=== PATIENT | female | born 1990 | race Caucasian/White ===

== ENCOUNTER 2017-03-22 00:38 | Inpatient (IN) | payer OTHER ==
[~2017-03-22] VITALS: Ht 165.1 cm; Wt 99.7 kg
[2017-03-22] VITALS (10 sets, daily range): BP systolic 96–143; BP diastolic 48–88; PULSE 64–114; RESP 16–18
[2017-03-22] MEDS ORDERED: LACTATED RINGER'S 1,000 ML IV SCH (01:13)
[2017-03-22] MEDS ORDERED: PRENAT PO (01:13)
[2017-03-22] MEDS ORDERED: BUTORPHANOL 2 MG INJ IV PRN (01:30)
[2017-03-22] MEDS ORDERED: MISOPROSTOL 200 MCG TAB PR PRN ×3 (01:30→17:00)
[2017-03-22] MEDS ORDERED: LIDOCAINE 1% (MPF) 30 ML INJ INJ PRN (01:30)
[2017-03-22] MEDS ORDERED: OXYTOCIN 30 UNITS/LR 500 ML IV PRN ×3 (01:30→17:00)
[2017-03-22] MEDS ORDERED: OXYTOCIN 30 UNITS/LR 500 ML IV SCH ×3 (01:30→16:43)
[2017-03-22] MEDS ORDERED: METHYLERGONOVINE 0.2 MG INJ IM PRN ×3 (01:30→17:00)
[2017-03-22] MEDS ORDERED: AMPICILLIN 2 GM/NS (PMX) 100 ML IV ONE (01:30)
[2017-03-22] MEDS ORDERED: CARBOPROST 250 MCG INJ IM PRN ×3 (01:30→17:00)
[2017-03-22] MEDS ORDERED: IBUPROFEN 600 MG TAB PO PRN (01:30)
--- NOTE | 2017-03-22 01:38 | TRIAGE ---
OB Triage Datetime Report Generated by CPN: 03/22/2017 01:37 Datetime: 03/22/2017 01:31 Time of Arrival: 03/22/2017 00:36 EGA: 40.3 Arrived By: Wheelchair Arrived From: Home Chief Complaint: ucs Movement: Present Contractions: Regular Time Contractions Began: 03/21/2017 22:00 Rupture of Membranes: Denies Vaginal Bleeding: Small Vaginal Discharge: Present Recent Sexual Intercouse: Denies Abdominal Trauma: Not Applicable Patient Complaints: Contractions Time Provider Notified: 03/22/2017 01:30 Provider Notified: Dr Jerez Initial Plan: SVE, EFM Datetime: 03/22/2017 01:16 Labor Evaluation Quality: Moderate Pattern: Normal: <= 5 Contractions in 10 Minutes Resting Tone Naselle: Relaxed Heart Rate FHR Baseline Rate: 130 Monitor Mode: External US FHR Baseline Changes: No Baseline Change Variability: Moderate 6-25 bpm Accelerations: 10X10 Decelerations: None Category: Category I Pain Assessment Pain Scale: 4 Pain Presence: Intermittent Pain Type: Contraction Pain Location: Abdomen Vaginal Exam Dilatation (cms): 4.0 Effacement (%): 90 Station: -2 Exam By: Devyn SINGH Membrane Status: Bulging Amniotic Fluid Amount: None Vaginal Bleeding: Scant Cervix, Consistency: Soft Cervix, Position: Posterior Presentation 'A': Cephalic
[2017-03-22 01:44] LABS: ADD UMIC YES; UR BILIRUBIN (Dip) NEGATIVE (NEGATIVE); UR BLOOD (Dip) 3+ (NEGATIVE); UR CLARITY SLIGHTLY CLOUDY (CLEAR); UR COLOR LT. YELLOW (YELLOW); UR GLUCOSE (Dip) NEGATIVE (NEGATIVE); UR KETONES (Dip) NEGATIVE (NEGATIVE); UR LEUKOCYTE ESTERASE (Dip) 2+ (NEGATIVE); UR NITRITE (Dip) NEGATIVE (NEGATIVE); UR TOTAL PROTEIN (Dip) NEGATIVE (NEGATIVE); UR UROBILINOGEN (Dip) 0.2 E.U./dL (0.1-1.0)
[2017-03-22] MEDS ORDERED: LACTATED RINGER'S 1,000 ML IV PRN (02:00)
[2017-03-22 02:10] LABS: UR BACTERIA OCCASIONAL /HPF (NONE SEEN); UR RBC 5 /HPF (0-5); UR SQUAMOUS EPITHELIAL CELL OCCASIONAL /HPF (FEW)
[2017-03-22 02:50] LABS: ADD SCAN DIFF NO
[2017-03-22 02:52] LABS: BASOPHILS % 0.1 % (0.0-2.0); EOSINOPHILS % 0.2 % (0.0-7.0); HEMATOCRIT 36.6 % (37.0-47.0); HEMOGLOBIN 12.2 g/dl (12.0-16.0); LYMPHOCYTES # 1.6 10^3/ul (0.8-2.9); LYMPHOCYTES % 12.2 % (15.0-51.0); MEAN CORPUSCULAR HEMOGLOBIN 30.6 pg (29.0-33.0); MEAN CORPUSCULAR HGB CONC 33.3 g/dl (32.0-37.0); MEAN CORPUSCULAR VOLUME 91.7 fl (82.0-101.0); MEAN PLATELET VOLUME 11.1 fl (7.4-10.4); MONOCYTE # 0.6 10^3/ul (0.3-0.9); MONOCYTES % 4.6 % (0.0-11.0); NEUTROPHILS % 82.6 % (39.0-77.0); PLATELET COUNT 172 10^3/UL (140-415); RED BLOOD COUNT 3.99 10^6/ul (4.20-5.40); RED CELL DISTRIBUTION WIDTH 13.4 % (11.5-14.5); WHITE BLOOD COUNT 13.3 10^3/ul (4.8-10.8)
--- NOTE | 2017-03-22 03:20 | RADRPT ---
PROCEDURE: US OB ESTIMATED WEIGHT. CLINICAL INDICATION: Pain. TECHNIQUE: Multiple sonographic images of the pelvis were obtained. The images were reviewed on a PACS workstation. COMPARISON: No pertinent prior examinations were submitted for comparison. FINDINGS: There is a single live intrauterine gestation. Cardiac activity is present with 144 beats per minut e. There is a vertex presentation. Measurements were made in order to determine age. The results are as follows: BPD =9.4 cm = 38 weeks 1 day HC =33 cm = 37 weeks 3 days AC =38 cm = 41 weeks 4 days FL =7.8 cm = 40 weeks 1 days Estimated gestational age of approximately 39 weeks 2 days. The estimated date of delivery is 03/27/2017. The EFW = 4044 g. 77.3% This examination was not performed for anatomy. The placenta is anterior, grade II in appearance. There is no evidence for an abruption or placenta previa. IMPRESSION: EFW = 4044 g. RPTAT: HIKT .Beto Padilla MD, MD Date Time Electronically viewed and signed by .Beto Padilla MD, on 03/22/2017 03:19 .T/
[2017-03-22 03:23] LABS: ALANINE AMINOTRANSFERASE 24 IU/L (13-69); ALBUMIN 4.4 g/dl (3.3-4.9); ALBUMIN/GLOBULIN RATIO 1.69; ALKALINE PHOSPHATASE 252 IU/L (42-121); ANION GAP 16 (8-16); ASPARTATE AMINO TRANSFERASE 16 IU/L (15-46); BILIRUBIN,INDIRECT 0.3 mg/dl (0-1.1); BILIRUBIN,TOTAL 0.3 mg/dl (0.2-1.3); BLOOD UREA NITROGEN 10 mg/dl (7-20); CALCIUM 9.2 mg/dl (8.4-10.2); CARBON DIOXIDE 19 mmol/L (21-31); CHLORIDE 106 mmol/L (97-110); CREATININE 0.74 mg/dl (0.44-1.00); GLUCOSE 89 mg/dl (70-220); POTASSIUM 4.1 mmol/L (3.5-5.1); SODIUM 137 mmol/L (135-144)
[2017-03-22 03:28] LABS: INR 0.93; PARTIAL THROMBOPLASTIN TIME 27.6 Sec (25.0-35.0); PROTIME 12.5 Sec (12.2-14.2)
[2017-03-22] MEDS ORDERED: MAGNESIUM SULFATE 4 GM/100 ML 100 ML ONE (04:39)
[2017-03-22] MEDS ORDERED: LABETALOL HCL 20MG INJ ONE (04:39)
[2017-03-22] MEDS ORDERED: MAGNESIUM SULFATE 4 GM/100 ML 100 ML IVPB ONE ×2 (04:40→05:00)
[2017-03-22] MEDS: LABETALOL HCL 20MG INJ IV PRN ×2 (04:48→05:46)
[2017-03-22] MEDS ORDERED: MAGNESIUM SULFATE 2 GM/50 ML 50 ML IVPB ONE (05:00)
[2017-03-22] MEDS ORDERED: MAGNESIUM SULFATE 20 GM/500 ML 500 ML IV SCH (05:30)
[2017-03-22] MEDS ORDERED: CEFAZOLIN 2 GM/50 ML (PMX) 50 ML IVPB SCH (08:00)
[2017-03-22] MEDS ORDERED: OXYTOCIN 10 UNIT INJ ONE (09:27)
[2017-03-22] MEDS ORDERED: EPHEDrine SULFATE 50 MG/5 ML SYG ONE (09:27)
[2017-03-22] MEDS ORDERED: morphine SULFATE/PF (10 MG/10 ML) INJ ONE (09:27)
[2017-03-22] MEDS ORDERED: METOCLOPRAMIDE 10 MG INJ ONE (09:27)
[2017-03-22] MEDS ORDERED: OXYTOCIN 30 UNITS/LR 500 ML IV ONE (09:27)
[2017-03-22] MEDS ORDERED: ONDANSETRON 4 MG INJ ONE (09:27)
[2017-03-22] MEDS ORDERED: KETOROLAC 30 MG INJ IV PRN (10:30)
[2017-03-22] MEDS ORDERED: DIPHENHYDRAMINE 50 MG INJ IV PRN (10:30)
[2017-03-22] MEDS ORDERED: NALOXONE (0.4 MG/ML) INJ IV PRN (10:30)
[2017-03-22] MEDS ORDERED: HYDROmorphONE 1 MG/ML SYG IV PRN ×2 (10:30)
[2017-03-22] MEDS ORDERED: EPHEDrine SULFATE 50 MG/5 ML SYG IV PRN (10:30)
[2017-03-22] MEDS ORDERED: morphine 2 MG INJ IV PRN ×2 (10:30)
[2017-03-22] MEDS ORDERED: morphine SULFATE/PF (10 MG/10 ML) INJ SPINAL ONE (10:30)
[2017-03-22] MEDS ORDERED: ONDANSETRON 4 MG INJ IV PRN (10:30)
[2017-03-22] MEDS: AMPICILLIN 1 GM/NS (PMX) 50 ML IV SCH (11:30)
[2017-03-22] MEDS ORDERED: OXYCODONE/ACETAMINOPHEN (5/325) TAB PO PRN ×2 (17:00)
[2017-03-22] MEDS ORDERED: ACETAMINOPHEN/CODEINE #3 TAB PO PRN ×2 (17:00)
[2017-03-22] MEDS ORDERED: LANOLIN 7 GM TUBE TOP PRN (17:00)
[2017-03-22] MEDS ORDERED: CEFAZOLIN 1 GM/50 ML (PMX) 50 ML IVPB SCH (17:00)
--- NOTE | 2017-03-22 17:20 | HP ---
Date/Time of Note Date/Time of Note DATE: 03/22/17 TIME: 16:27 OB - History Hx of Present Free Text/Dictation This is a 26 years old white female 40 weeks and 3 days admitted to [facility] [id number] on March 22, 2017 with chief complaint of labor, pelvic examination on admission cervix 4 cm dilated 90% effacement vertex at -2 -3 station with intact membrane, on admission her first blood pressure was 143/90 then later on sandra to 180s over high 90s complaining of headache epigastric pain but no blurry vision received IV labetalol ordered by the laborist on-call she underwent an ultrasound evaluation estimated weight over 4000 g, pelvic examination at 7:30 AM no change in cervical dilatation in spite of regular contractions, she also had 2 variable deceleration 3-4 minutes with recovery to the base line these findings which consist of high blood pressure suspected PIH, intolerance to labor estimated weight of over 4000 g discussed with the patient option to continue trial of labor or operative delivery by , after discussing the complication of the operative delivery patient consulted with the family declined further trial of labor and decided on delivery complication of including but not limited to bowel bladder injury wound infection hemorrhage and hematoma patient fully understood stated she would like to proceed with the operation Chief Complaint: Labor contractions Estimated Due Date: Mar 19, 2017 : 1 Para: 0 Spontaneous : 0 Therapeutic : 0 Care: Good Care Ultrasounds: Normal mid trimester US Obstetrical Complications: None Medical Complications: None Past Family/Social History * Past Medical, Surgical, Family and Obstetric Histories reviewed from chart. Rubella: immune RPR/VDRL: Negative GBS Status: Negative HBsAG: Negative OB Admission Exam Vital Signs Vital Signs Vital Signs Date Time Temp Pulse Resp B/P Pulse Ox O2 Delivery O2 Flow Rate FiO2 03/22/17 01:11 98.1 64 18 143/88 Room Air Physical Exam HEENT: WNL Heart: Rhythm Normal Lungs: Clear, Equal Abdomen: WNL Extremities: Normal Reflexes: Normal Cervical Dilatation: 4cm (90%) Membranes: Intact Heart Rate: 130's Accelerations: Accelerations Present Decelerations: Variable Decelerations Varibility: Moderate Contractions on Admission: 6-10 Minutes Apart Intensity: Moderate Last 72 hours Lab Results CBC & BMP 03/22/17 02:00 Liver Function Test 6/21/17 02:00 Alanine Aminotransferase (ALT/SGPT) 24 Albumin 4.4 Alkaline Phosphatase 252 H Aspartate Amino Transf (AST/SGOT) 16 Direct Bilirubin 0.00 Total Protein 7.0 Magnesium Level Test 03/22/17 12:15 Magnesium Level 4.4 H OB Assessment/Plan Reason for admission: other (Considering patient's elevated blood pressures to the level required IV labetalol, 2 variable deceleration lasting more than 3 minute, estimated weight of 4000+ since patient declined further trial of labor ,operative delivery by section was alternative option) Plan: Section Induction Method: other LISET PHAM MD Mar 22, 2017 16:50
[2017-03-22] MEDS: MAGNESIUM SULFATE 20 GM/500 ML 500 ML IV SCH (17:23)
[2017-03-22] MEDS: LACTATED RINGER'S 1,000 ML IV SCH (17:25)
--- NOTE | 2017-03-22 17:53 | OPR ---
DATE OF OPERATION: 03/22/2017 PREOPERATIVE DIAGNOSES: 1. Intrauterine at 40 weeks and 3 days. 2. complicated with -induced hypertension. 3. intolerance to contractions. 4. Estimated weight 4000 grams plus. 5. The patient declined further trial of labor. POSTOPERATIVE DIAGNOSES: 1. Intrauterine at 40 weeks and 3 days. 2. Estimated weight 4000 grams plus. 3. Suspected -induced hypertension, required IV labetalol. 4. Nonreassuring heart tracing, 2 separate decelerations of the heart to 60, lasting 3 minutes. 5. The patient declined further trial of labor. PROCEDURE PERFORMED: SURGEON: Liset Pinzon MD [employer] SUPERVISOR: Jessy Jerez MD ANESTHESIA: Spinal. ANESTHESIOLOGIST: Donnie Phan MD FINDINGS: Live baby boy, 8 and 9. Baby weighed at 4175 grams. DETAILS OF THE PROCEDURE: Under satisfactory spinal anesthesia, the patient was prepped and draped and placed in supine position, tilted to the left. Pfannenstiel incision was made, incision carried through the subcutaneous tissue. Bleeders brought under control with electrocautery. Fascia incis ed to the length of the incision. Rectus muscle divided in midline. Peritoneum exposed, entered th rough a transverse incision. Exploration of abdomen: Gravid uterus, normal-appearing tubes and ova dylon, evidence of labor. Bladder flap was developed. Transverse incision was made in the lower seg ment of the uterus. Amniotic sac ruptured. Scant amount but clear amniotic fluid noted. Live baby boy was delivered from wedged in vertex, occiput posterior. Nasal oropharyngeal suction was perfor med. Baby handed to the team for immediate attention. The patient received 20 units of Pi tocin. Placenta delivered manually intact. Uterine cavity cleaned with a sponge and drainage estab lished. Uterus closed in 2 layers using Monocryl #1 in continuous fashion. Peritoneal cavity irrig ated with warm saline. Sponge, needle and instrument reported to be correct. Abdominal peritoneum closed with 2-0 chromic catgut continuously. Rectus muscle approximated with a few interrupted 2-0 chromic catgut. Fascia closed with #1 PDS in a continuous fashion. Subcutaneo us tissue approximated with a few interrupted 2-0 chromic catgut. Skin closed with elisabeth. Estima maki blood loss 600 mL. Urine bag contained 200 mL of concentrated urine. The patient tolerated the procedure well, transferred to recovery room in a good condition. Dictated By: LISET OROZCO/DEVANTE Conf#: [id number] DID#: [id number]
[2017-03-23] VITALS (12 sets, daily range): BP systolic 96–116; BP diastolic 48–83; PULSE 88–110; RESP 16–20
[2017-03-23] MEDS: MAGNESIUM SULFATE 20 GM/500 ML 500 ML IV SCH (03:33)
[2017-03-23 07:54] LABS: ADD SCAN DIFF NO
[2017-03-23 08:03] LABS: BASOPHILS % 0.1 % (0.0-2.0); EOSINOPHILS % 0.1 % (0.0-7.0); HEMATOCRIT 26.7 % (37.0-47.0); HEMOGLOBIN 8.9 g/dl (12.0-16.0); LYMPHOCYTES # 1.4 10^3/ul (0.8-2.9); LYMPHOCYTES % 15.4 % (15.0-51.0); MEAN CORPUSCULAR HEMOGLOBIN 31.2 pg (29.0-33.0); MEAN CORPUSCULAR HGB CONC 33.3 g/dl (32.0-37.0); MEAN CORPUSCULAR VOLUME 93.7 fl (82.0-101.0); MEAN PLATELET VOLUME 10.7 fl (7.4-10.4); MONOCYTE # 0.3 10^3/ul (0.3-0.9); MONOCYTES % 3.2 % (0.0-11.0); NEUTROPHIL # 7.4 10^3/ul (1.6-7.5); NEUTROPHILS % 80.8 % (39.0-77.0); PLATELET COUNT 144 10^3/UL (140-415); RED BLOOD COUNT 2.85 10^6/ul (4.20-5.40); RED CELL DISTRIBUTION WIDTH 14.3 % (11.5-14.5); WHITE BLOOD COUNT 9.2 10^3/ul (4.8-10.8)
[2017-03-23] MEDS: LACTATED RINGER'S 1,000 ML IV SCH (08:35)
[2017-03-23] MEDS: IBUPROFEN 600 MG TAB PO SCH ×3 (12:06→23:48)
--- NOTE | 2017-03-23 13:02 | PN ---
Date/Time of Note Date/Time of Note DATE: 03/23/17 TIME: 13:01 OB Subjective Subjective Subjective Post primary day 1 Afebrile vital signs are listed abdomen is bowel sounds present incision lochia moderate extremities normal ambulation is encouraged Laboratory Tests Test 03/22/17 18:10 03/23/17 00:58 03/23/17 07:21 Magnesium Level 5.2mg/dl 5.7mg/dl 5.9mg/dl White Blood Count 9.210^3/ul Red Blood Count 2.8510^6/ul Hemoglobin 8.9g/dl Hematocrit 26.7% Mean Corpuscular Volume 93.7fl Mean Corpuscular Hemoglobin 31.2pg Mean Corpuscular Hemoglobin Concent 33.3g/dl Red Cell Distribution Width 14.3% Platelet Count 36832^3/UL Mean Platelet Volume 10.7fl Neutrophils % 80.8% Lymphocytes % 15.4% Monocytes % 3.2% Eosinophils % 0.1% Basophils % 0.1% Nucleated Red Blood Cells % 0.0/100WBC Neutrophils # 7.410^3/ul Lymphocytes # 1.410^3/ul Monocytes # 0.310^3/ul Eosinophils # 0.010^3/ul Basophils # 0.010^3/ul Nucleated Red Blood Cells # 0.010^3/ul Current Medications Medications (Trade) Dose Ordered Sig/Charlette Route PRN Reason Start Time Stop Time Status Last Admin Dose Admin Lactated Ringer's 1,000 ml @ 125 mls/hr Q8H IV 03/22/17 01:13 03/22/17 16:45 DC 03/22/17 02:05 Ampicillin 100 ml @ 100 mls/hr ONCE ONCE IV 03/22/17 01:30 03/22/17 02:29 DC Ampicillin (Ampicillin 1 Gm/ NS (Pmx)) 50 ml @ 100 mls/hr Q4H IV 03/22/17 05:30 03/22/17 16:45 DC Butorphanol Tartrate (Stadol) 2 mg Q2H PRN IV PAIN 03/22/17 01:30 03/22/17 16:46 DC Lidocaine 30 ml 30 ml ONCE PRN INJ EPISIOTOMY/TEARING 03/22/17 01:30 03/22/17 16:46 DC Oxytocin/Lactated Ringer's 500 ml @ 125 mls/hr ONCE -MAY REPEAT X1 IV 03/22/17 01:30 03/22/17 16:46 DC 03/22/17 11:29 Oxytocin/Lactated Ringer's 500 ml @ 125 mls/hr ONCE IV 03/22/17 01:30 03/22/17 16:46 DC Ibuprofen 600 mg 600 mg ONCE PRN PO Mild Pain (Pain Score 1-3) 03/22/17 01:30 03/22/17 16:46 DC Lactated Ringer's 1,000 ml @ 2,000 mls/hr Q30M PRN IV PRE-EPIDURAL BOLUS 03/22/17 02:00 03/22/17 16:46 DC Oxytocin/Lactated Ringer's 500 ml @ 0 mls/hr ONCE PRN IV For Hemorrhage Management 03/22/17 01:30 03/22/17 16:46 DC Methylergonovine Maleate (Methergine) 0.2 mg ONCE PRN IM VAGINAL BLEEDING 03/22/17 01:30 03/22/17 16:47 DC Carboprost Tromethamine (Hemabate) 250 mcg ONCE PRN IM VAGINAL BLEEDING 03/22/17 01:30 03/22/17 16:47 DC Misoprostol 1000 mcg 1,000 mcg ONCE PRN MO VAGINAL BLEEDING 03/22/17 01:30 03/22/17 16:47 DC Magnesium Sulfate 100 ml @ 200 mls/hr ONCE ONCE IVPB 03/22/17 04:40 03/22/17 04:43 DC Magnesium Sulfate (Magnesium Sulfate 2 Gm/50 ml) 50 ml @ 25 mls/hr ONCE ONCE IVPB 03/22/17 05:00 03/22/17 05:00 DC Labetalol HCl 20 mg 20 mg GIVE IF INDICATED PRN IV ELEVATED BLOOD PRESSURE 03/22/17 04:40 03/22/17 16:46 DC 03/22/17 05:46 Magnesium Sulfate (Magnesium Sulfate 4 Gm/100 ml) 100 ml @ ud STK-MED ONCE .ROUTE 03/22/17 04:39 03/22/17 04:40 DC Labetalol HCl 20 mg 20 mg STK-MED ONCE .ROUTE 03/22/17 04:39 03/22/17 04:40 DC Magnesium Sulfate 500 ml @ 50 mls/hr Q10H IV 03/22/17 05:30 03/22/17 16:46 DC 03/22/17 05:42 Magnesium Sulfate 100 ml @ 200 mls/hr ONCE ONCE IVPB 03/22/17 05:00 03/22/17 05:29 DC 03/22/17 04:57 Cefazolin Sodium/ Dextrose 50 ml @ 100 mls/hr ONCE IVPB 03/22/17 08:00 03/22/17 12:00 DC Oxytocin/Lactated Ringer's 500 ml @ 0 mls/hr ONCE PRN IV For Hemorrhage Management 03/22/17 08:00 03/22/17 16:46 DC Methylergonovine Maleate (Methergine) 0.2 mg ONCE PRN IM VAGINAL BLEEDING 03/22/17 08:00 03/22/17 16:46 DC Carboprost Tromethamine (Hemabate) 250 mcg ONCE PRN IM VAGINAL BLEEDING 03/22/17 08:00 03/22/17 16:46 DC Misoprostol (Cytotec) 1,000 mcg ONCE PRN MO VAGINAL BLEEDING 03/22/17 08:00 03/22/17 16:46 DC Ephedrine Sulfate 50 mg 50 mg STK-MED ONCE .ROUTE 03/22/17 09:27 03/22/17 09:28 DC Oxytocin/Lactated Ringer's 500 ml @ ud STK-MED ONCE IV 03/22/17 09:27 03/22/17 09:28 DC Morphine Sulfate (Duramorph) 10 mg STK-MED ONCE .ROUTE 03/22/17 09:27 03/22/17 09:28 DC Ondansetron HCl (Zofran Inj) 4 mg STK-MED ONCE .ROUTE 03/22/17 09:27 03/22/17 09:28 DC Metoclopramide HCl (Reglan) 10 mg STK-MED ONCE .ROUTE 03/22/17 09:27 03/22/17 09:28 DC Oxytocin (Oxytocin) 10 units STK-MED ONCE .ROUTE 03/22/17 09:27 03/22/17 09:28 DC Naloxone HCl (Narcan) 0.1 mg Q2M PRN IV FOR RESP RATE 8 OR LESS 03/22/17 10:30 03/23/17 10:29 DC Ketorolac Tromethamine (Toradol) 30 mg Q6H PRN IV PAIN 03/22/17 10:30 03/23/17 10:29 DC Morphine Sulfate (morphine) 2 mg Q3H PRN IV PAIN LEVEL 1-5 03/22/17 10:30 03/23/17 10:29 DC Morphine Sulfate (morphine) 4 mg Q3H PRN IV PAIN LEVEL 6-10 03/22/17 10:30 03/23/17 10:29 DC Hydromorphone HCl (Dilaudid) 0.2 mg Q3H PRN IV PAIN LEVEL 1-5 03/22/17 10:30 03/23/17 10:29 DC Hydromorphone HCl (Dilaudid) 0.4 mg Q3H PRN IV PAIN LEVEL 6-10 03/22/17 10:30 03/23/17 10:29 DC Diphenhydramine HCl (Benadryl) 25 mg Q6H PRN IV ITCHING 03/22/17 10:30 03/23/17 10:29 DC Ondansetron HCl (Zofran Inj) 4 mg Q6H PRN IV NAUSEA AND/OR VOMITING 03/22/17 10:30 03/23/17 10:29 DC Morphine Sulfate (Duramorph) 0.3 mg GIVEN ANESTH ONCE SPINAL 03/22/17 10:30 03/22/17 10:31 DC Ephedrine Sulfate 5 mg [id number] PRN IV BLOOD PRESSURE SUPPORT 03/22/17 10:30 03/22/17 16:46 DC Acetaminophen/ Codeine Phosphate (Tylenol No.3) 1 tab Q4H PRN PO PAIN LEVEL 4-6 03/22/17 17:00 Acetaminophen/ Codeine Phosphate (Tylenol No.3) 2 tab Q4H PRN PO PAIN LEVEL 7-10 03/22/17 17:00 Oxycodone/ Acetaminophen (Percocet (5/ 325)) 1 tab Q4H PRN PO PAIN LEVEL 4-6 03/22/17 17:00 Oxycodone/ Acetaminophen (Percocet (5/ 325)) 2 tab Q4H PRN PO PAIN LEVEL 7-10 03/22/17 17:00 Ibuprofen (Motrin) 600 mg Q6 PO 03/23/17 12:00 03/23/17 12:06 Simethicone (Mylicon) 160 mg Q8H PRN PO DISTENSION/GAS/BLOATING 03/22/17 17:00 Senna/Docusate Sodium (Senokot-S) 1 tab BID PO 03/23/17 21:00 Lanolin (Mbv-G-Nsxarm) 1 applic BEDSIDE MEDICATION PRN TOP BEDSIDE FOR AARON TO NIPPLES 03/22/17 17:00 03/22/17 17:24 Diphtheria/ Tetanus/Acell Pertussis 0.5 ml 0.5 ml ONCE ONCE IM* 03/25/17 09:00 03/25/17 09:01 Oxytocin/Lactated Ringer's 500 ml @ 0 mls/hr ONCE PRN IV For Hemorrhage Management 03/22/17 17:00 Methylergonovine Maleate (Methergine) 0.2 mg ONCE PRN IM VAGINAL BLEEDING 03/22/17 17:00 Carboprost Tromethamine (Hemabate) 250 mcg ONCE PRN IM VAGINAL BLEEDING 03/22/17 17:00 Misoprostol 1000 mcg 1,000 mcg ONCE PRN MO VAGINAL BLEEDING 03/22/17 17:00 Cefazolin Sodium 50 ml @ 100 mls/hr ONCE IVPB 03/22/17 17:00 03/22/17 17:29 DC 03/22/17 17:22 Oxytocin/Lactated Ringer's 500 ml @ 125 mls/hr Q4H IV 03/22/17 16:43 Lactated Ringer's 1,000 ml @ 75 mls/hr [id number] IV 03/22/17 17:00 03/23/17 08:35 Magnesium Sulfate (Magnesium Sulfate 20 Gm/500 ml) 500 ml @ 50 mls/hr Q10H IV 03/22/17 17:30 03/23/17 03:33 LISET PHAM MD Mar 23, 2017 13:02
[2017-03-23] MEDS: SENNA/DOCUSATE NA (8.6MG/50MG) TAB PO SCH (21:05)
[2017-03-24 04:00] VITALS: BP 116/71; PULSE 99; RESP 20
[2017-03-24] MEDS: IBUPROFEN 600 MG TAB PO SCH ×4 (05:36→23:38)
[2017-03-24 08:00] VITALS: BP 136/81; PULSE 82; RESP 18
[2017-03-24] MEDS: SENNA/DOCUSATE NA (8.6MG/50MG) TAB PO SCH ×2 (09:10→20:42)
--- NOTE | 2017-03-24 15:26 | PN ---
Date/Time of Note Date/Time of Note DATE: 03/24/17 TIME: 15:24 OB Subjective Subjective Subjective Post date Afebrile vital signs are stable, abdomen soft uterus firm incision dry bowel sounds present no bowel movement extremities normal enema recommended LISET PHAM MD Mar 24, 2017 15:26
[2017-03-24 16:00] VITALS: BP 131/73; PULSE 88; RESP 16
[2017-03-24 20:30] VITALS: BP 126/76; PULSE 94; RESP 18
[2017-03-25 04:00] VITALS: BP 112/69; PULSE 48; RESP 18
[2017-03-25] MEDS: IBUPROFEN 600 MG TAB PO SCH ×2 (05:44→12:31)
[2017-03-25 08:15] VITALS: BP 131/87; PULSE 82; RESP 18
[2017-03-25] MEDS ORDERED: DIPHTH/TET/ACEL PERTUSS (ADULT) 0.5 ML VIAL IM* ONE (09:00)
[2017-03-25] MEDS: SENNA/DOCUSATE NA (8.6MG/50MG) TAB PO SCH (09:01)
--- NOTE | 2017-03-25 11:29 | PD.PPDC ---
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
--- NOTE | 2017-03-25 11:32 | DS ---
Date/Time of Note Date/Time of Note DATE: 03/25/17 TIME: 11:29 Discharge Summary Admission/Discharge Info Admit Date/Time Mar 22, 2017 at 01:30 Discharge Date/Time March 25, 2017 at 11:30 AM Discharge Diagnosis Post primary date 3 Patient Condition: Good Procedures Primary due to nonreassuring heart tracing suspected PIH estimated weight of the baby over 4000 g patient declined further trial of labor Hx of Present Illness Term Hospital Course Satisfactory uneventful Home Meds Reported Medications Multivit/Min/Fol Ac/Iron/Pren* ( S*) 1 Tab Tab, 1 TAB PO DAILY, TAB 03/22/17 Follow-up Plan Appointment clinic in 4 day to discontinue elisabeth patient given instructions Primary Care Provider [facility] Time spent on discharge: < 30 minutes LISET PHAM MD Mar 25, 2017 11:32
== END 2017-03-25 12:25 | disposition home or self-care (01) | DRG 766 ==
LOC: L-D 00:38 → OBT 00:38 → L-D 01:30 → OBT 01:30 → L-D 09:50 → PP1 15:28
PROVIDERS: ADMIT Obstetrics & Gynecology; ATTEND Obstetrics & Gynecology
PROC: 10D00Z1 Extraction of Products of Conception, Low, Open Approach (ICD-10-PCS; principal; 2017-03-22 09:00)
DX: O76 Abnormality in fetal heart rate and rhythm complicating labor and delivery (principal); O13.4 Gestational [pregnancy-induced] hypertension without significant proteinuria, complicating childbirth; Z3A.40 40 weeks gestation of pregnancy; Z37.0 Single live birth
CPT/HCPCS: 76815; 80053; 81001; 83735; 84560; 85025; 85610; 85730; 86592; 86900; 86901; 87340; 90715; 99464; G0463; J0690; J2274; J2405; J2590; J2765; J3475; J7120